=== PATIENT | female | born 1975 | race Caucasian/White ===

== ENCOUNTER → 2018-01-09 | Day surgery (SDC) | payer OTHER ==
[~2018-01-09] VITALS: Ht 167.6 cm; Wt 61.2 kg
[~2018-01-09] MED LIST: ALDACTONE50 M1 PO; EB-N5 PO; ESCITALOPRAM OX20 MG PO; HUMALOG100 UNIT/2 SC; LANTUS SOL100 UNIT/1 SC; LOVASTATIN20 M1 PO; MULTI FOR HER1 EAC1 PO; TESTOSTERONE5000 GM TOP; TRIDERM28.4 GM TOP; VITAMIN C500 M6 PO; VITAMIN D1000 UNIT PO
--- NOTE | 2018-01-09 10:59 | Operative Report ---
Operative/Inv Procedure Report Surgery Date: 01/09/18 Name of Procedure: LEEP Pre-Operative Diagnosis: LETHA II Post-Operative Diagnosis: SAME Estimated Blood Loss: scant Surgeon/Regional Forester: Killian Chinchilla MD Anesthesia: moderate sedation Implants: Lactated Ringer's Specimens: Cervical tissue Complications: None Condition: Stable Operative Indication: 42-year-old, abnormal Pap smear, colposcopy was done, cervical biopsy showed LETHA-2 Operative/Procedure Note Note: The patient was taken to the operating room where IV sedation was obtained without difficulty. The patient was then examined under anesthesia. She was then placed in the dorsal lithotomy position and prepared and draped in the usual sterile fashion. A rubber bivalve speculum was then placed into the patient's vagina, 1 mL 1% lidocaine was injected into the cervix, a loop electrode was used to remove portions of anterior and posterior cervical tissue , a rollerball was used to cauterize the bleeding site. Monsel solution was applied to the cervix. Hemostasis assured. Patient tolerated the procedure well, instruments and laps counts were correct, patient was taken to the recovery room in stable condition.
== END ==
LOC: STS 01:30
DX: N87.1 Moderate cervical dysplasia (principal); E03.9 Hypothyroidism, unspecified; E11.9 Type 2 diabetes mellitus without complications; Z79.4 Long term (current) use of insulin
CPT/HCPCS: 81025; J0131; J2250